=== PATIENT | female | born 1965 | race Caucasian/White ===

== ENCOUNTER 2018-04-30 20:27 | Emergency (ER) | payer OTHER, SELFPAY ==
[2018-04-30 20:30] VITALS: BP 122/84; PULSE 85; RESP 20; TEMP 36.9; O2SAT 98; BMI 34.3
--- NOTE | 2018-04-30 20:59 | ED.LOWEXIN ---
HPI - Extremity Injury (Lower) General Chief Complaint: Extremity Injury, Lower Stated Complaint: FALL/ACUTE LEFT LOWER PAIN Time Seen by Provider: 04/30/18 20:30 Source: patient and family Mode of arrival: ambulatory Limitations: no limitations History of Present Illness HPI Narrative: Patient presents with a history increasing left hip pain over the past few days. She was walking at a park few days ago when her left foot slipped on something on the ground causing her leg tissue forward while she fell landing on her right leg. Essentially she was doing a version of the splits. She was able to get up and ambulate okay but has had increasing pain ever since. The pain became more severe over the course of the day. She denies any knee, ankle or foot pain. She denies any history of left hip injury. She denies any head neck or back pain. She is having trouble ambulating but states the pain is non-existent when sitting still MD complaint: hip injury Onset (ago): day(s) Injury: Left: hip Type of Injury: hyperflexion Place: street/outdoors Severity: severe Relieving factors: immobilization Exacerbating factors: movement Context: walking Associated symptoms: unable to bear weight Other symptoms: none Related Data Previous Rx's Medication Instructions Recorded cyclobenzaprine 10 mg PO TID PRN #14 tab 04/30/18 hydrocodone-acetaminophen 1 tab PO Q4-6H PRN #14 tab 04/30/18 ibuprofen 600 mg PO TID-QID PRN #20 tab 04/30/18 Allergies Allergy/AdvReac Type Severity Reaction Status Date / Time Penicillins Allergy Verified 04/30/18 20:36 Review of Systems Review of Systems All systems reviewed & are unremarkable except as noted in HPI and below Constitutional Denies chills, Denies fever(s), Denies lethargy and Denies weakness Eyes Denies change in vision, Denies eye discharge, Denies irritation and Denies loss of vision ENT Ears, Nose, Mouth, and Throat: Denies change in voice, Denies neck pain and Denies sore throat Cardiovascular Denies chest pain, Denies irregular heart rhythm, Denies lightheadedness, Denies palpitations, Denies dyspnea, Denies dyspnea on exertion and Denies orthopnea Respiratory Denies cough, Denies dyspnea, Denies dyspnea on exertion and Denies wheezing Gastrointestinal Gastrointestinal: Denies abdominal pain, Denies change in bowel habits, Denies diarrhea, Denies nausea and Denies vomiting Genitourinary Denies hematuria, Denies flank pain, Denies urinary incontinence and Denies urinary urgency Musculoskeletal Reports limited range of motion and Denies neck pain Integumentary/Breasts Denies pruritus, Denies erythema, Denies rash and Denies wounds Neurologic Denies confusion, Denies loss of vision and Denies weakness Psychiatric Denies anxiety, Denies confusion, Denies depression, Denies homicidal ideation and Denies suicidal ideation Endocrine Denies palpitations Hematologic/Lymphatic Denies easy bruising Allergic/Immunologic Denies wheezing [facility] Social History Smoking Status: Never smoker Exam Initial Vital Signs Initial Vital Signs: Vital Signs Temperature 98.4 F 04/30/18 20:30 Pulse Rate 85 04/30/18 20:30 Respiratory Rate 20 04/30/18 20:30 Blood Pressure 122/84 H 04/30/18 20:30 Pulse Oximetry 98 04/30/18 20:30 Const General: cooperative, well developed, in distress and anxious Nutritional Appearance: well nourished Orientation: alert, awake, oriented x3 and not confused [facility] Head: normocephalic and atraumatic Ears: external ears normal and TM's normal bilaterally Nose: external nose normal and No nasal discharge Face and sinus: sinuses nontender, face symmetric, no sinus tenderness and No dry mucous membranes Mouth: oral mucosae normal and moist mucous membranes Teeth and gingiva: dentition normal Throat: tonsils normal and uvula midline Eyes General: appearance normal, both eyes and all related structures Eyelids: eyelids normal Conjunctivae: conjunctivae normal Sclera: sclerae normal Pupils: PERRL EOM: EOM intact bilaterally Neck Neck: normal visual inspection, trachea midline, No lymphadenopathy, No midline deformity and No JVD Lymphatic: No lymphedema Chest Chest: normal inspection of the chest Resp Effort & Inspection: normal respiratory effort, able to speak in complete sentences, no respiratory distress and no use of accessory muscles Auscultation: clear to auscultation bilaterally, no rales, no rhonchi and no wheezes Cardio Rate: regular rate Rhythm: regular rhythm Heart Sounds: no click, no gallops, no murmurs and no rubs Pulses: normal peripheral pulses GI Inspection: non-distended Palpation: soft, no hepatosplenomegaly, No guarding, No pulsatile mass and No tender Auscultation: normal bowel sounds Back/Spine/Pelvis Back: No CVA tenderness Cervical Spine: cervical ROM normal and No pain with cervical ROM Thoracic/Lumbar Spine: thoracic and lumbar spine normal to inspection Skin General: no rashes or lesions noted, No jaundice and No petechiae Neuro General: alert, oriented x3, gait normal and no focal motor deficits Speech: speech normal Extrem General: full ROM, no clubbing, cyanosis or edema, no pedal edema and no calf tenderness Left lower extremity: hip/thigh (Patient has minimal tenderness to palpation and becomes very sharp and severe with active flexion or internal rotation of the hip. With passive range of motion the patient has little to no pain.) Psych Appearance: well kempt Mental Status: mental status grossly normal Attitude: cooperative Thought Content: normal and suicidality Judgment: judgment good Course Orders Ordered: ED Orders 04/30/18 21:11 XR hip w pel if done LT 2V Stat 04/30/18 21:52 CT pelvis wo con Stat Discontinued Medications Cyclobenzaprine HCl (Flexeril 10 Mg Prepack) 1 bottle MISC SEEINSTR ONE Stop: 04/30/18 23:29 Hydromorphone HCl (Dilaudid) 1 mg SUBCUT Q4H PRN PRN Reason: Pain, Severe (7-10) Last Admin: 04/30/18 21:17 Dose: 1 mg Ketorolac Tromethamine (Toradol) 30 mg IM NOW ONE Stop: 04/30/18 23:29 Vital Signs - 8 hr 04/30/18 22:07 04/30/18 23:30 Temperature 97.1 F L Pulse Rate 63 60 Respiratory Rate 18 18 Blood Pressure [Left Arm] 124/82 H 120/71 Pulse Oximetry 97 97 MDM - Extremity Injury (Lower) Imaging Data Pelvis / Hip Xray: Attestation: I personally reviewed and interpreted this imaging study as follows: My impression: No fracture or dislocation CT scan - pelvis: Radiologist's impression: No Fx Discharge Plan Departure Patient Disposition: Home, Self-Care Clinical Impression: Hip strain Discharge Date/Time: 05/01/18 00:40 Interventions: ED Discharge Assessment Last Done: 05/01/18 00:39 Instructions: DI for Groin Strain Activity Restrictions/Additional Instructions: You have been prescribed narcotic medications. While on these medications you cannot drive or operate heavy machinery. Additionally you cannot sign legal documents or perform any duties such as this. 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 Please understand that we cannot provide further refills of narcotics or controlled substances through the ED and your pain management will need to be through your Primary Care Provider Prescriptions: New hydrocodone-acetaminophen 5-325 mg tablet 1 tab PO Q4-6H PRN (Reason: pain) Qty: 14 RF: 0 ibuprofen 600 mg tablet 600 mg PO TID-QID PRN (Reason: pain) Qty: 20 RF: 0 cyclobenzaprine 10 mg tablet 10 mg PO TID PRN (Reason: muscle spasm) Qty: 14 RF: 0 Referrals: Ralph Sheth MD [Physician] - Renee Chau DO [Physician] -
--- NOTE | 2018-04-30 21:11 | DI.RAD.S_ITS ---
PROCEDURE: XR HIP W PEL IF DONE LT 2V INDICATIONS: fall with severe pain TECHNIQUE: AP pelvis with lateral view(s) of the left hip(s). COMPARISON: [facility], CT, CT PEL WO CON, 04/30/2018, 21:50. FINDINGS: Bones: No fractures or dislocations. Pelvic ring appears intact. No suspicious bony lesions. Soft tissues: The visualized bowel gas pattern is normal. No suspicious soft tissue calcifications. IMPRESSION: No fracture. Dictated by: Caron Gonzáles M.D. on 04/30/2018 at 22:36 Approved by: Caron Gonzáles M.D. on 04/30/2018 at 22:38
[2018-04-30] MEDS: HYDROMORPHONE 2 MG INJ 1 MG SUBCUT (21:17)
--- NOTE | 2018-04-30 21:52 | DI.CT.S_ITS ---
PROCEDURE: CT PEL WO CON INDICATIONS: severe L hip/pelvis pain s/p fall. Norm Xray TECHNIQUE: Noncontrast 3 mm axial sections acquired through the bony pelvis, with coronal and sagittal reformatting. COMPARISON: [facility], CR, XR HIP W PEL IF DONE LT 2V, 04/30/2018, 21:18. FINDINGS: Image quality: Excellent. Bones: No visualized fracture or dislocation. Grade 1 anterior listhesis of L5 on S1 with bilateral pars defects at L5. Soft tissues: Visualized portions of the abdomen demonstrate nonobstructive gas pattern. Diverticulosis is present. Appendix is unremarkable. IMPRESSION: No visualized fracture. If clinical concern persists, followup imaging with MRI may be obtained if occult injury is suspected. Dictated by: Caron Gonzáles M.D. on 05/01/2018 at 8:48 Approved by: Caron Gonzáles M.D. on 05/01/2018 at 8:52
[2018-04-30 22:07] VITALS: BP 124/82; PULSE 63; RESP 18; TEMP 36.2; O2SAT 97
[2018-04-30 23:30] VITALS: BP 120/71; PULSE 60; RESP 18; O2SAT 97
== END 2018-05-01 00:40 | disposition home or self-care (01) ==
PROVIDERS: Emergency Provider Emergency Medicine
DX: S76.019A Strain of muscle, fascia and tendon of unspecified hip, initial encounter (principal); W19.XXXA Unspecified fall, initial encounter
CPT/HCPCS: 72192; 73502; 96372; 99282; 99283; J1170